=== PATIENT | female | born 1970 | race Caucasian/White ===

== ENCOUNTER 2016-09-26 22:41 | Emergency (ER) | payer OTHER ==
[~2016-09-26] VITALS: Ht 152.4 cm; Wt 65.8 kg
[~2016-09-26 22:41] MED LIST: CYCL10TA2 PO; ESTR0.9T PO; HYDR-2766 PO; INSU100C SQ; INSU100I13 SQ; NAPR500T PO; ONDA4TAB10 SL; TRAM50TA PO; Vancomycin Hcl PO; imitrex; insulin
[2016-09-26 23:36] LABS: BILIRUBIN,URINE NEGATIVE (NEG); GLUCOSE,URINE 100 mg/dL (NEG); NITRITE,URINE NEGATIVE (NEG); PH,URINE 6.5; PROTEIN,URINE NEGATIVE (NEG-TRACE); UROBILINOGEN,URINE 0.2 mg/dL (0.2 mg/dL)
[2016-09-26 23:40] LABS: NEG OBC UR NEG; POS OBC UR POS
[2016-09-26 23:45] LABS: BACTERIA,URINE MODERATE /HPF (0-FEW); RBC,URINE 0 /HPF (0-2); SQUAMOUS EPITHELIAL CELL,UR MANY /LPF
[2016-09-27] VITALS: BP 123/70
--- NOTE | 2016-09-27 00:09 | PHYS DOC ---
Past Medical History Past Medical History: Diabetes-Type I, Migraines, Other Additional Past Medical Histor: interstitial cystitis, chronic abdominal pain, drug seeking behavior Past Surgical History: Appendectomy, Hysterectomy, Oophorectomy, Tonsillectomy , Tubal ligation, Other Additional Past Surgical Histo: left ovary removed Alcohol Use: None Drug Use: None Adult General Chief Complaint Chief Complaint: HYPOGLYCEMIA HPI HPI Patient is a 46 year old female who presents with hypoglycemia. Patient found by her family in her bed & was unresponsive. They could not arouse with sternal rub, accucheck at home was in 20s. EMS gave glucagon & D50, now awake & talking with no complaints. She states she has type 1 diabetes, on lantus & sliding scale short acting insulin. She denies any change in her insulin regimen, she missed dinner because she was sleeping. Otherwise has been eating & drinking normally. Earlier in the day had no complaints, denies fevers/chills , chest pain, shortness of breath, abdominal pain, vomiting, diarrhea, extremity numbness/weakness. 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 Review of Systems Review of Systems Constitutional: Denies fever or chills Eyes: Denies change in visual acuity HENT: Denies nasal congestion or sore throat Respiratory: Denies cough or shortness of breath Cardiovascular: Denies chest pain or edema GI: Denies abdominal pain, nausea, vomiting, or diarrhea : Denies dysuria or hematuria Musculoskeletal: Denies back pain or joint pain Integument: Denies rash or skin lesions Neurologic: Denies headache, focal weakness or sensory changes Endocrine: reports hypoglycemia Allergies Allergies Allergies Coded Allergies Type Severity Reaction Last Updated Verified No Known Drug Allergies 09/23/14 No Physical Exam Physical Exam Constitutional: Well developed, well nourished, no acute distress, non-toxic appearance. HENT: Normocephalic, atraumatic, bilateral external ears normal, oropharynx moist, nose normal. Eyes: PERRLA, EOMI, conjunctiva normal, no discharge. Neck: supple, no stridor. Cardiovascular: RRR, no murmurs, no edema. Lungs & Thorax: LCTAB, no wheezing, no respiratory distress. Abdomen: soft, nontender, nondistended. Skin: Warm, dry, no erythema, no rash. Back: No tenderness. Extremities: No tenderness, no edema. Neurologic: Alert and oriented X 3, normal motor & sensory function, no focal deficits noted. Psychologic: Affect normal, judgement normal, mood normal. Current Patient Data Vital Signs Vital Signs Date Time Temp Pulse Resp B/P (MAP) Pulse Ox O2 Delivery O2 Flow Rate FiO2 09/27/16 00:00 82 18 123/70 (87) 99 Room Air 09/26/16 22:54 97.3 97.3 Lab Values Laboratory Tests Test 09/26/16 22:47 09/26/16 23:20 09/26/16 23:54 Glucose (Fingerstick) 225 mg/dL (70-99) H 284 mg/dL (70-99) H Urine Collection Type Unknown Urine Color Yellow Urine Clarity Clear Urine pH 6.5 Urine Specific [place] 1.010 Urine Protein Negative mg/dL (NEG-TRACE) Urine Glucose (UA) 100 mg/dL (NEG) Urine Ketones (Stick) Negative mg/dL (NEG) Urine Blood Negative (NEG) Urine Nitrite Negative (NEG) Urine Bilirubin Negative (NEG) Urine Urobilinogen Dipstick 0.2 mg/dL (0.2 mg/dL) Urine Leukocyte Esterase Trace (NEG) Urine RBC 0 /HPF (0-2) Urine WBC 1-4 /HPF (0-4) Urine Squamous Epithelial Cells Many /LPF Urine Bacteria Moderate /HPF (0-FEW) Urine Mucus Slight /LPF Urine Test Negative (NEG) EKG EKG Interpreted by me: NSR rate 85, no acute ST/T wave changes, Qtc prolonged 467 ms , no ectopy.[] Radiology/Procedures Radiology/Procedures [] Course & Med Decision Making Course & Med Decision Making Pertinent Labs and Imaging studies reviewed. (See chart for details) The patient presents with hypoglycemia. She has glucose > 200 on arrival. Ordered labs which she refused. She was given food. Glucose stable > 200 with no further complaints. She declines any workup for possible underlying causes of hypoglycemia including infection, ischemia, metabolic. She says she feels better, wants to go home right away, will follow up with head field hockey coach. Recommend check glucose every 2 hours, eat regularly, call head field hockey coach in the AM. There are risks of leaving after minimal observation, could have recurrent hypoglycemia. She lives with family & states they can make sure she is acting appropriately. Instructed to come back for recurrent hypoglycemia, high fever, severe chest pain, focal neuro deficit, uncontrolled vomiting, any otherwise worsening condition. Discharged home in stable condition. [] Dragon Disclaimer Dragon Disclaimer This electronic medical record was generated, in whole or in part, using a voice recognition dictation system. Departure Departure Impression: Primary Impression: Hypoglycemia Disposition: 01 HOME, SELF-CARE Condition: IMPROVED Referrals: NO PCP (PCP) Patient Instructions: Hypoglycemia, [id number] Additional Instructions: You were seen in the emergency department today for low blood glucose. It improved with treatment here. Please be sure to eat regular meals and drink fluids to stay hydrated. Blood glucose every 2 hours throughout the night tonight. Call your head field hockey coach in the morning to be seen this week. Come back for severe confusion, recurring low blood glucose, chest pain, uncontrolled vomiting, any otherwise worsening condition. JORDON MADDEN MD Sep 27, 2016 00:09
--- NOTE | 2016-09-27 06:19 | EKG ---
[facility] [address] [place] [address] Test Date: 2016-09-26 Test Time: 22:50:14 Pat Name: ANGEL MCKEON Department: Room: Gender: F [employer]: : [id number] Requested By: JORDON MADDEN Order Number: [id number] Reading MD: Scott Anguiano Measurements Intervals [place] Rate: 85 P: 48 OK: 130 QRS: 46 QRSD: 72 T: 16 QT: 392 QTc: 467 Interpretive Statements SINUS RHYTHM AXIS NORMAL CONSIDERING AGE LOW VOLTAGE INCOMPLETE RIGHT BUNDLE BRANCH BLOCK PROLONGED QT ABNORMAL ECG RI6.01 Compared to ECG 11/15/2013 13:53:35 Low QRS voltage now present Incomplete right bundle-branch block now present Prolonged QT interval now present Sinus tachycardia no longer present T-wave abnormality no longer present Electronically Signed On 09-27-2016 17:40:37 CDT by Scott Anugiano
== END 2016-09-27 00:22 | disposition home or self-care (01) ==
LOC: ER 22:41
DX: E10.649 Type 1 diabetes mellitus with hypoglycemia without coma (principal); G89.29 Other chronic pain; G43.909 Migraine, unspecified, not intractable, without status migrainosus; Z90.710 Acquired absence of both cervix and uterus; Z90.49 Acquired absence of other specified parts of digestive tract; Z90.721 Acquired absence of ovaries, unilateral; Z98.51 Tubal ligation status; Z79.4 Long term (current) use of insulin
CPT/HCPCS: 80053; 81001; 81025; 82962; 84484; 85027; 87086; 93005; 99285-25

== ENCOUNTER 2019-09-16 19:12 | Observation (INO) | payer OTHER ==
[~2019-09-16] VITALS: Ht 154.9 cm; Wt 68.0 kg
[~2019-09-16 19:12] MED LIST changes: -HYDR-2766 PO; +HYDR-2769 PO; +NAPR-683 PO; -NAPR500T PO
--- NOTE | 2019-09-16 19:20 | PHYS DOC ---
Past Medical History Past Medical History: Diabetes-Type I, Migraines, Other Additional Past Medical Histor: interstitial cystitis, chronic abdominal pain, drug seeking behavior Past Surgical History: Appendectomy, Hysterectomy, Oophorectomy, Tonsillectomy, Tubal ligation, Other Additional Past Surgical Histo: left ovary removed Smoking Status: Current Every Day Smoker Alcohol Use: None Drug Use: None General Adult EDM: Chief Complaint: ALTERED MENTAL STATUS HPI: HPI: Patient is a 49 year old female with a history of diabetes presents with altered mental status. Patient's family member went to check on her and found patient had altered mental status. Patient had blood sugar in the 30s by EMS. Patient was treated prehospital with sugar. Patient blood sugar is now in the 140 range but is still altered. Entire history and physical review of systems is limited due to altered mental status. There is no known last known normal Review of Systems: Review of Systems: Review of systems is unobtainable due to altered mental status. Neuro: Altered mental status Heart Score: Risk Factors: Risk Factors: DM, Current or recent (<one month) smoker, HTN, HLP, family history of CAD, obesity. Risk Scores: Score 0 - 3: 2.5% MACE over next 6 weeks - Discharge Home Score 4 - 6: 20.3% MACE over next 6 weeks - Admit for Clinical Observation Score 7 - 10: 72.7% MACE over next 6 weeks - Early Invasive Strategies Allergies: Allergies: Allergies Coded Allergies Type Severity Reaction Last Updated Verified No Known Drug Allergies 09/23/14 No Physical Exam: PE: Constitutional: Well developed, well nourished, mild distress HENT: Normocephalic, atraumatic, bilateral external ears normal, oropharynx moist, no oral exudates, nose normal. [] Eyes: PERRLA, EOMI, conjunctiva normal, no discharge. [] Neck: Normal range of motion, no tenderness, supple, no stridor. [] Cardiovascular:Heart rate regular rhythm, peripheral pulses intact Lungs & Thorax: No respiratory distress Abdomen: soft, no tenderness, no masses, no pulsatile masses. [] Skin: Warm, dry, no erythema, no rash. [] Back: No tenderness, no CVA tenderness. [] Extremities: No tenderness, no cyanosis, no clubbing, ROM intact, no edema. [] Neurologic: Alert but confused and oriented x0. Moves all extremities. Follows some simple commands. No focal neurological deficits EKG: EKG: [] Normal sinus rhythm with rate 85. Normal axis normal intervals normal ST segments Radiology/Procedures: Radiology/Procedures: [][facility] [address] [place] [address] IMAGING REPORT Signed PATIENT: ANGEL MCKEON ACCOUNT: [id number] : 1970 LOCATION: ER AGE: 49 SEX: F EXAM STATUS: REG ER ORD. PHYSICIAN: YASH TA MD REASON: ams PROCEDURE: CT HEAD WO CONTRAST Exam: CT head INDICATION: Altered mental status TECHNIQUE: Sequential axial images through the head were obtained without the administration of IV contrast. Comparisons: None FINDINGS: No focal parenchymal lesion or hemorrhage is identified. There is no midline shift or sulcal effacement. No acute vascular territory infarction is identified. Rios-white distinction is preserved. The ventricular system is within normal limits without compression hydrocephalus. The basal cisterns are well maintained. The visualized portions of the paranasal sinuses and mastoid air cells are well-pneumatized. No acute fractures. IMPRESSION: No acute intracranial abnormality. Exposure: One or more of the following in the visualized dose reduction techniques were utilized for this examination: 1. Automated exposure control 2. Adjustment of the MA and/or KV according to patient size Use of iterative of reconstructive technique Electronically signed by: Shawna Carbone MD (09/16/2019 7:51 PM) [id number] DICTATED and SIGNED BY: SHAWNA CARBONE MD DATE: 09/16/191950 Impression: [facility] [address] [place], [place] [id number] IMAGING REPORT Signed PATIENT: ANGEL MCKEON ACCOUNT: [id number] : 1970 LOCATION: ER AGE: 49 SEX: F EXAM STATUS: REG ER ORD. PHYSICIAN: YASH TA MD REASON: APHASIA, OMNI 300, 60 ML IV PROCEDURE: CTA HEAD/NECK - CODE STROKE Exam: CTA head and neck INDICATION: Aphagia TECHNIQUE: Sequential axial images through the head and neck obtained following the administration of 60 mL of Omni 300 IV contrast. Sagittal and coronal reformatted images were reconstructed from the axial data and reviewed. 3-D reformatted images were reconstructed from the axial data and reviewed. Comparisons: CT head without contrast same day FINDINGS: CTA NECK: Visualized portions of the thoracic aorta are unremarkable. Standard three-vessel aortic arch anatomy. Right common carotid artery is patent without evidence of stenosis, occlusion or aneurysm. Minimal plaque at the origin of the right internal carotid artery without significant stenosis. Left common carotid artery is patent without evidence of stenosis, occlusion or aneurysm. Minimal plaque at the origin of the left internal carotid artery without significant stenosis. Right vertebral artery is patent to the basilar confluence without evidence of stenosis, occlusion or aneurysm. Left vertebral artery is patent to basilar confluence without evidence of stenosis, occlusion or aneurysm. Visualized soft tissues are unremarkable. CTA HEAD: Intracranial segments of the right internal carotid artery are patent without evidence of stenosis, occlusion or aneurysm. Right MCA is patent. Right EDYTA is patent. Intracranial segments of the left internal carotid artery are patent without evidence of stenosis, occlusion or aneurysm. Left MCA is patent. Left EDYTA is patent. Basilar artery is patent without evidence of stenosis, occlusion or aneurysm. pan devulcanizer helper are patent bilaterally. There is origin of the right CASE MANAGERS. IMPRESSION: 1. No large vessel occlusion. 2. Minimal plaque at the origin of the internal carotid arteries bilaterally without significant stenosis. Exposure: One or more of the following in the visualized dose reduction techniques were utilized for this examination: 1. Automated exposure control 2. Adjustment of the MA and/or KV according to patient size 3. Use of iterative of reconstructive technique Electronically signed by: Shawna Carbone MD (09/16/2019 10:19 PM) [id number] DICTATED and SIGNED BY: SHAWNA CARBONE MD DATE: 09/16/192218 Course & Med Decision Making: Course & Med Decision Making Pertinent Labs and Imaging studies reviewed. (See chart for details) []1929: Mom is the room and says the patient was last seen normal at 130 this morning as she has been staying with her but she did not come out of her room today. Patient was found at the foot of the bed this evening no signs or history of trauma 20:30 pt clinically improved. now oriented to name. following commands more e asily 21:15. PT still quite aphasic 21:30: d/w dr. cross. suggests cta and if no lvo, okay to admit here for mri and cva w/u Discussed with Dr. Kelly who will admit the patient. No TPA was given with last known normal at 1:30 in the morning. Dragon Disclaimer: Dragon Disclaimer: This electronic medical record was generated, in whole or in part, using a voice recognition dictation system. Departure Departure Impression: Primary Impression: Altered mental status Additional Impression: Hypoglycemia Disposition: ADMITTED INPATIENT Admitting Physician: [facility] (DR. KELLY) Condition: STABLE Referrals: NO PCP (PCP) Justicifation of Admission Dx: Justifications for Admission: Justification of Admission Dx: Yes YASH TA MD Sep 16, 2019 19:20
[2019-09-16 19:39] LABS: BASO % 0 % (0-3); EOS % 0 % (0-3); HEMATOCRIT 40.9 % (36.0-47.0); HEMOGLOBIN 14.3 g/dL (12.0-15.5); LYMPH # 0.7 x10^3/uL (1.0-4.8); LYMPH % 9 % (24-48); MEAN CORPUSCULAR HEMOGLOBIN 34 pg (25-35); MEAN CORPUSCULAR HGB CONC 35 g/dL (31-37); MEAN CORPUSCULAR VOLUME 98 fL (79-100); MONO # 0.1 x10^3/uL (0.0-1.1); MONO % 2 % (0-9); NEUT # 7.2 x10^3/uL (1.8-7.7); NEUT % 89 % (31-73); PLATELET COUNT 242 x10^3/uL (140-400); RED BLOOD COUNT 4.17 x10^6/uL (3.50-5.40); RED CELL DISTRIBUTION WIDTH 13.5 % (11.5-14.5); WHITE BLOOD COUNT 8.1 x10^3/uL (4.0-11.0)
[2019-09-16 19:50] LABS: GFR 59.4; POTASSIUM 4.4 mmol/L (3.5-5.1)
--- NOTE | 2019-09-16 19:53 | RAD ---
Exam: CT head INDICATION: Altered mental status TECHNIQUE: Sequential axial images through the head were obtained without the administration of IV contrast. Comparisons: None FINDINGS: No focal parenchymal lesion or hemorrhage is identified. There is no midline shift or sulcal effacement. No acute vascular territory infarction is identified. Rios-white distinction is preserved. The ventricular system is within normal limits without compression hydrocephalus. The basal cisterns are well maintained. The visualized portions of the paranasal sinuses and mastoid air cells are well-pneumatized. No acute fractures. IMPRESSION: No acute intracranial abnormality. Exposure: One or more of the following in the visualized dose reduction techniques were utilized for this examination: 1. Automated exposure control 2. Adjustment of the MA and/or KV according to patient size Use of iterative of reconstructive technique Electronically signed by: Shawna Singh MD (09/16/2019 7:51 PM) [id number]
[2019-09-16 19:58] LABS: ALBUMIN 3.9 g/dL (3.4-5.0); ALBUMIN/GLOBULIN RATIO 1.1 (1.0-1.7); CALCIUM 8.7 mg/dL (8.5-10.1); TOTAL BILIRUBIN 0.8 mg/dL (0.2-1.0); TOTAL PROTEIN 7.3 g/dL (6.4-8.2)
[2019-09-16 20:02] LABS: % LYMPHS 7 % (24-48); % MONOS 3 % (0-10); % SEGS 90 % (35-66); PLT ESTIMATE ADEQUATE (ADEQUATE)
[2019-09-16] MEDS ORDERED: CONTRAST GIVEN. MC PRN (21:45)
[2019-09-16] MEDS ORDERED: ASPIRIN 325 MG TABLET PO ONE (22:00)
[2019-09-16] MEDS ORDERED: IOHEXOL 300 MG/ML 100ML VIAL. IV ONE (22:00)
[2019-09-16] MEDS ORDERED: ONDANSETRON PF 4 MG/2 ML VIAL. IV PRN (22:15)
--- NOTE | 2019-09-16 22:22 | RAD ---
Exam: CTA head and neck INDICATION: Aphagia TECHNIQUE: Sequential axial images through the head and neck obtained following the administration of 60 mL of Omni 300 IV contrast. Sagittal and coronal reformatted images were reconstructed from the axial data and reviewed. 3-D reformatted images were reconstructed from the axial data and reviewed. Comparisons: CT head without contrast same day FINDINGS: CTA NECK: Visualized portions of the thoracic aorta are unremarkable. Standard three-vessel aortic arch anatomy. Right common carotid artery is patent without evidence of stenosis, occlusion or aneurysm. Minimal plaque at the origin of the right internal carotid artery without significant stenosis. Left common carotid artery is patent without evidence of stenosis, occlusion or aneurysm. Minimal plaque at the origin of the left internal carotid artery without significant stenosis. Right vertebral artery is patent to the basilar confluence without evidence of stenosis, occlusion or aneurysm. Left vertebral artery is patent to basilar confluence without evidence of stenosis, occlusion or aneurysm. Visualized soft tissues are unremarkable. CTA HEAD: Intracranial segments of the right internal carotid artery are patent without evidence of stenosis, occlusion or aneurysm. Right MCA is patent. Right EDYTA is patent. Intracranial segments of the left internal carotid artery are patent without evidence of stenosis, occlusion or aneurysm. Left MCA is patent. Left EDYTA is patent. Basilar artery is patent without evidence of stenosis, occlusion or aneurysm. combination presser are patent bilaterally. There is origin of the right HAIR CUTTER. IMPRESSION: 1. No large vessel occlusion. 2. Minimal plaque at the origin of the internal carotid arteries bilaterally without significant stenosis. Exposure: One or more of the following in the visualized dose reduction techniques were utilized for this examination: 1. Automated exposure control 2. Adjustment of the MA and/or KV according to patient size 3. Use of iterative of reconstructive technique Electronically signed by: Shawna Singh MD (09/16/2019 10:19 PM) [id number]
--- NOTE | 2019-09-17 02:58 | NUR ---
PT IS ON ER HOLD BED. UNABLE TO COMPLETE ADMISSION ASSESSMENTS DUE TO PT IS AMS.
[2019-09-17 03:30] VITALS: BP 135/69
[2019-09-17] MEDS ORDERED: NICOTINE 21MG PATCH. TD PRN (06:45)
[2019-09-17 07:50] LABS: BILIRUBIN,URINE NEGATIVE (NEG); CLARITY,URINE CLEAR; COLOR,URINE YELLOW; NITRITE,URINE NEGATIVE (NEG); PROTEIN,URINE NEGATIVE (NEG-TRACE)
[2019-09-17 07:57] LABS: AMPHETAMINE/METHAMPHETAMINE NEG (NEG); BARBITURATES NEG (NEG); BENZODIAZEPINES NEG (NEG); CANNABINOIDS NEG (NEG); COCAINE NEG (NEG); METHADONE NEG (NEG); OPIATES POS (NEG); PHENCYCLIDINE NEG (NEG)
[2019-09-17 08:03] LABS: WBC,URINE OCC /HPF (0-4)
[2019-09-17 08:04] LABS: BACTERIA,URINE FEW /HPF (0-FEW); SQUAMOUS EPITHELIAL CELL,UR MOD /LPF
--- NOTE | 2019-09-17 08:25 | PDOC1 ---
History and Physical Date of Admission Date of Admission DATE: 09/17/19 TIME: 08:15 Identification/Chief Complaint Chief Complaint Altered mental status Source Source: Caregiver History of Present Illness History of Present Illness Ms Silvestre is a 49yo F w/ PMHx Diabetes-Type I, Migraines, chronic interstitial cystitis, chronic abdominal pain, smoker who is brought to ED via EMS for altered mental status. Patient's family member went to check on her and found patient had altered mental status. Mother states patient did not come out of her room today. Patient had blood sugar in the 30s by EMS. Last known normal was 0130 on 09/16/2019. No TPA was given. Glucose into 140s with treatment with dextrose. Patient was not following commands and was aphasic per ED physician. NIHSS was 3. EKG: Normal sinus rhythm with rate 85. Normal axis normal intervals normal ST segments CT head and CTA head and neck negative for thrombus. Admitted for observation in ED with neurology consultation. Seen 08 30 on 09/17/2019 she is alert and oriented x3. No focal neurological deficits. She is anxious to go home. Notes she has been on Novolin and and Novolin R at home has been trying to adjust her insulin dosing because she cannot afford glargine insulin currently. Past Medical History Endocrine: Diabetes Past Surgical History Past Surgical History: Appendectomy, Tubal Ligation, Tonsillectomy, Hysterectomy, Other (Left oophorectomy) Family History Family History: No Significant Social History Smoke: 1 pack per day ALCOHOL: rare Drugs: None Current Problem List Problem List Problems Medical Problems: (1) Altered mental status Status: Acute (2) Hypoglycemia Status: Acute Current Medications Current Medications Current Medications Aspirin (Derek Aspirin) 325 mg 1X ONCE PO Last administered on 09/16/19at 21:33; Start 09/16/19 at 22:00; Stop 09/16/19 at 22:01; Status DC Iohexol (Omnipaque 300 Mg/ml) 60 ml 1X ONCE IV Last administered on 09/16/19at 22:21; Start 09/16/19 at 22:00; Stop 09/16/19 at 22:01; Status DC Info (CONTRAST GIVEN -- Rx MONITORING) 1 each PRN DAILY PRN MC SEE COMMENTS; Start 09/16/19 at 21:45; Stop 09/18/19 at 21:44 Ondansetron HCl (Zofran) 4 mg PRN Q8HRS PRN IV NAUSEA/VOMITING 1ST CHOICE; Start 09/16/19 at 22:15; Stop 09/17/19 at 22:14 Nicotine (Nicoderm Cq 21mg) 1 patch PRN DAILY PRN TD SMOKING CESSATION Last administered on 09/17/19at 07:30; Start 09/17/19 at 06:45 Active Scripts Active Zofran Odt (Ondansetron) 4 Mg Tab.rapdis 1 Tab SL Q6HRS PRN Reported Premarin (Estrogens, Conjugated) 0.9 Mg Tablet 1 Mg PO DAILY Lantus Solostar (Insulin Glargine,Hum.rec.anlog) 100 Unit/1 Ml Insuln.pen 5 Unit SQ DAILY Humalog (Insulin Lispro) 100 Unit/1 Ml Cartridge 0-5 Unit SQ TIDAC Lantus Solostar (Insulin Glargine,Hum.rec.anlog) 100 Unit/1 Ml Insuln.pen 5 Unit SQ QHS Hydrocodone-Apap 10-325 (Hydrocodone Bit/Acetaminophen) 1 Each Tablet 2 Each PO TID Allergies Allergies: Coded Allergies: No Known Drug Allergies (Unverified , 09/23/14) ROS General: No: Chills, Night Sweats, Fatigue, Malaise, Appetite, Other PSYCHOLOGICAL ROS: No: Anxiety, Behavioral Disorder, Concentration difficultie, Decreased libido, Depression, Disorientation, Hallucinations, Hostility, Irritablity, Memory difficulties, Mood Swings, Obsessive thoughts, Physical abuse, Sexual abuse, Sleep disturbances, Suicidal ideation, Other Eyes: No Blurry vision, No Decreased vision, No Double vision, No Dry eyes, No Excessive tearing, No Eye Pain, No Itchy Eyes, No Loss of vision, No Photop hobia, No Scotomata, No Uses contacts, No Uses glasses, No Other HEENT: No: Heacaches, Visual Changes, Hearing change, Nasal congestion, Nasal discharge, Oral lesions, Sinus pain, Sore Throat, Epistaxis, Sneezing, Snoring, Tinnitus, Vertigo, Vocal changes, Other ALLERGY AND IMMUNOLOGY: No: Hives, Insect Bite Sensitivity, Itchy/Watery Eyes, Nasal Congestion, Post Nasal Drip, Seasonal Allergies, Other Hematological and Lymphatic: No: Bleeding Problems, Blood Clots, Blood Transfusions, Brusing, Night Sweats, Pallor, Swollen Lymph Nodes, Other ENDOCRINE: No: Breast Changes, Galactorrhea, Hair Pattern Changes, Hot Flashes, Malaise/lethargy, Mood Swings, Palpitations, Polydipsia/polyuria, Skin Changes, Temperature Intolerance, Unexpected Weight Changes, Other Breast: No New/Changing Breast Lumps, No Nipple changes, No Nipple discharge, No Other Respiratory: No: Cough, Hemoptysis, Orthopnea, Pleuritic Pain, Shortness of breath, SOB with excertion, Sputum Changes, Stridor, Tachypnea, Wheezing, Other Cardiovascular: No Chest Pain, No Palpitations, No Orthopnea, No Paroxysmal Noc. Dyspnea, No Edema, No Lt Headedness, No Other Gastrointestinal: No Nausea, No Vomiting, No Abdominal Pain, No Diarrhea, No Constipation, No Melena, No Hematochezia, No Other Genitourinary: No Dysuria, No Frequency, No Incontinence, No Hematuria, No R etention, No Discharge, No Urgency, No Pain, No Flank Pain, No Other, No , No , No , No , No , No , No Musculoskeletal: No Gait Disturbance, No Joint Pain, No Joint Stiffness, No Joint Swelling, No Muscle Pain, No Muscular Weakness, No Pain In:, No Swelling In:, No Other Neurological: No Behavorial Changes, No Bowel/Bladder ControlChng, No Confusion, No Dizziness, No Gait Disturbance, No Headaches, No Impaired Coord/balance, No Memory Loss, No Numbness/Tingling, No Seizures, No Speech Problems, No Tremors, No Visual Changes, No Weakness, No Other Skin: No Dry Skin, No Eczema, No Hair Changes, No Lumps, No Mole Changes, No Mottling, No Nail Changes, No Pruritus, No Rash, No Skin Lesion Changes, No Other, No Acne Physical Exam General: Alert, Oriented X3, Cooperative, No acute distress HEENT: Atraumatic, PERRLA Lungs: Clear to auscultation, Normal air movement Vitals Vitals Vital Signs Date Time Temp Pulse Resp B/P (MAP) Pulse Ox O2 Delivery O2 Flow Rate FiO2 09/17/19 03:30 99.1 72 16 135/69 (91) 97 Room Air 99.1 Labs Labs Laboratory Tests Test 09/16/19 19:15 09/16/19 19:27 09/16/19 20:32 09/17/19 07:25 Glucose (Fingerstick) 149 mg/dL (70-99) 208 mg/dL (70-99) White Blood Count 8.1 x10^3/uL (4.0-11.0) Red Blood Count 4.17 x10^6/uL (3.50-5.40) Hemoglobin 14.3 g/dL (12.0-15.5) Hematocrit 40.9 % (36.0-47.0) Mean Corpuscular Volume 98 fL (79-100) Mean Corpuscular Hemoglobin 34 pg (25-35) Mean Corpuscular Hemoglobin Concent 35 g/dL (31-37) Red Cell Distribution Width 13.5 % (11.5-14.5) Platelet Count 242 x10^3/uL (140-400) Neutrophils (%) (Auto) 89 % (31-73) Lymphocytes (%) (Auto) 9 % (24-48) Monocytes (%) (Auto) 2 % (0-9) Eosinophils (%) (Auto) 0 % (0-3) Basophils (%) (Auto) 0 % (0-3) Neutrophils # (Auto) 7.2 x10^3/uL (1.8-7.7) Lymphocytes # (Auto) 0.7 x10^3/uL (1.0-4.8) Monocytes # (Auto) 0.1 x10^3/uL (0.0-1.1) Eosinophils # (Auto) 0.0 x10^3/uL (0.0-0.7) Basophils # (Auto) 0.0 x10^3/uL (0.0-0.2) Segmented Neutrophils % 90 % (35-66) Lymphocytes % 7 % (24-48) Monocytes % 3 % (0-10) Platelet Estimate Adequate (ADEQUATE) Sodium Level 134 mmol/L (136-145) Potassium Level 4.4 mmol/L (3.5-5.1) Chloride Level 97 mmol/L (98-107) Carbon Dioxide Level 26 mmol/L (21-32) Anion Gap 11 (6-14) Blood Urea Nitrogen 9 mg/dL (7-20) Creatinine 1.0 mg/dL (0.6-1.0) Estimated GFR (Cockcroft-Gault) 59.4 BUN/Creatinine Ratio 9 (6-20) Glucose Level 247 mg/dL (70-99) Calcium Level 8.7 mg/dL (8.5-10.1) Total Bilirubin 0.8 mg/dL (0.2-1.0) Aspartate Amino Transf (AST/SGOT) 17 U/L (15-37) Alanine Aminotransferase (ALT/SGPT) 22 U/L (14-59) Alkaline Phosphatase 160 U/L (46-116) Creatine Kinase 95 U/L (26-192) Total Protein 7.3 g/dL (6.4-8.2) Albumin 3.9 g/dL (3.4-5.0) Albumin/Globulin Ratio 1.1 (1.0-1.7) Ethyl Alcohol Level < 10 mg/dL (0-10) Urine Collection Type Unknown Urine Color Yellow Urine Clarity Clear Urine pH 7.0 (<5.0-8.0) Urine Specific [place] >=1.030 (1.000-1.030) Urine Protein Negative mg/dL (NEG-TRACE) Urine Glucose (UA) >=1000 mg/dL (NEG) Urine Ketones (Stick) 40 mg/dL (NEG) Urine Blood Negative (NEG) Urine Nitrite Negative (NEG) Urine Bilirubin Negative (NEG) Urine Urobilinogen Dipstick 1.0 mg/dL (0.2 mg/dL) Urine Leukocyte Esterase Negative (NEG) Urine RBC 3-5 /HPF (0-2) Urine WBC Occ /HPF (0-4) Urine Squamous Epithelial Cells Mod /LPF Urine Bacteria Few /HPF (0-FEW) Urine Opiates Screen Pos (NEG) Urine Methadone Screen Neg (NEG) Urine Barbiturates Neg (NEG) Urine Phencyclidine Screen Neg (NEG) Urine Amphetamine/Methamphetamine Neg (NEG) Urine Benzodiazepines Screen Neg (NEG) Urine Cocaine Screen Neg (NEG) Urine Cannabinoids Screen Neg (NEG) Urine Ethyl Alcohol Neg (NEG) Laboratory Tests Test 09/16/19 19:15 09/16/19 19:27 09/16/19 20:32 09/17/19 07:25 Glucose (Fingerstick) 149 mg/dL (70-99) 208 mg/dL (70-99) White Blood Count 8.1 x10^3/uL (4.0-11.0) Red Blood Count 4.17 x10^6/uL (3.50-5.40) Hemoglobin 14.3 g/dL (12.0-15.5) Hematocrit 40.9 % (36.0-47.0) Mean Corpuscular Volume 98 fL (79-100) Mean Corpuscular Hemoglobin 34 pg (25-35) Mean Corpuscular Hemoglobin Concent 35 g/dL (31-37) Red Cell Distribution Width 13.5 % (11.5-14.5) Platelet Count 242 x10^3/uL (140-400) Neutrophils (%) (Auto) 89 % (31-73) Lymphocytes (%) (Auto) 9 % (24-48) Monocytes (%) (Auto) 2 % (0-9) Eosinophils (%) (Auto) 0 % (0-3) Basophils (%) (Auto) 0 % (0-3) Neutrophils # (Auto) 7.2 x10^3/uL (1.8-7.7) Lymphocytes # (Auto) 0.7 x10^3/uL (1.0-4.8) Monocytes # (Auto) 0.1 x10^3/uL (0.0-1.1) Eosinophils # (Auto) 0.0 x10^3/uL (0.0-0.7) Basophils # (Auto) 0.0 x10^3/uL (0.0-0.2) Segmented Neutrophils % 90 % (35-66) Lymphocytes % 7 % (24-48) Monocytes % 3 % (0-10) Platelet Estimate Adequate (ADEQUATE) Sodium Level 134 mmol/L (136-145) Potassium Level 4.4 mmol/L (3.5-5.1) Chloride Level 97 mmol/L (98-107) Carbon Dioxide Level 26 mmol/L (21-32) Anion Gap 11 (6-14) Blood Urea Nitrogen 9 mg/dL (7-20) Creatinine 1.0 mg/dL (0.6-1.0) Estimated GFR (Cockcroft-Gault) 59.4 BUN/Creatinine Ratio 9 (6-20) Glucose Level 247 mg/dL (70-99) Calcium Level 8.7 mg/dL (8.5-10.1) Total Bilirubin 0.8 mg/dL (0.2-1.0) Aspartate Amino Transf (AST/SGOT) 17 U/L (15-37) Alanine Aminotransferase (ALT/SGPT) 22 U/L (14-59) Alkaline Phosphatase 160 U/L (46-116) Creatine Kinase 95 U/L (26-192) Total Protein 7.3 g/dL (6.4-8.2) Albumin 3.9 g/dL (3.4-5.0) Albumin/Globulin Ratio 1.1 (1.0-1.7) Ethyl Alcohol Level < 10 mg/dL (0-10) Urine Collection Type Unknown Urine Color Yellow Urine Clarity Clear Urine pH 7.0 (<5.0-8.0) Urine Specific [place] >=1.030 (1.000-1.030) Urine Protein Negative mg/dL (NEG-TRACE) Urine Glucose (UA) >=1000 mg/dL (NEG) Urine Ketones (Stick) 40 mg/dL (NEG) Urine Blood Negative (NEG) Urine Nitrite Negative (NEG) Urine Bilirubin Negative (NEG) Urine Urobilinogen Dipstick 1.0 mg/dL (0.2 mg/dL) Urine Leukocyte Esterase Negative (NEG) Urine RBC 3-5 /HPF (0-2) Urine WBC Occ /HPF (0-4) Urine Squamous Epithelial Cells Mod /LPF Urine Bacteria Few /HPF (0-FEW) Urine Opiates Screen Pos (NEG) Urine Methadone Screen Neg (NEG) Urine Barbiturates Neg (NEG) Urine Phencyclidine Screen Neg (NEG) Urine Amphetamine/Methamphetamine Neg (NEG) Urine Benzodiazepines Screen Neg (NEG) Urine Cocaine Screen Neg (NEG) Urine Cannabinoids Screen Neg (NEG) Urine Ethyl Alcohol Neg (NEG) Images Images CT head: No focal parenchymal lesion or hemorrhage is identified. There is no midline shift or sulcal effacement. No acute vascular territory infarction is identified. Rios-white distinction is preserved. The ventricular system is within normal limits without compression hydrocephalus. The basal cisterns are well maintained. The visualized portions of the paranasal sinuses and mastoid air cells are well- pneumatized. No acute fractures. IMPRESSION: No acute intracranial abnormality. CTA head and neck CTA NECK: Visualized portions of the thoracic aorta are unremarkable. Standard three- vessel aortic arch anatomy. Right common carotid artery is patent without evidence of stenosis, occlusion or aneurysm. Minimal plaque at the origin of the right internal carotid artery without significant stenosis. Left common carotid artery is patent without evidence of stenosis, occlusion or aneurysm. Minimal plaque at the origin of the left internal carotid artery with out significant stenosis. Right vertebral artery is patent to the basilar confluence without evidence of stenosis, occlusion or aneurysm. Left vertebral artery is patent to basilar confluence without evidence of stenosis, occlusion or aneurysm Visualized soft tissues are unremarkable. CTA HEAD: Intracranial segments of the right internal carotid artery are patent without evidence of stenosis, occlusion or aneurysm. Right MCA is patent. Right EDYTA is patent. Intracranial segments of the left internal carotid artery are patent without evidence of stenosis, occlusion or aneurysm. Left MCA is patent. Left EDYTA is patent. Basilar artery is patent without evidence of stenosis, occlusion or aneurysm. ciaio lumite injector are patent bilaterally. There is origin of the right [employer]ER. IMPRESSION: 1. No large vessel occlusion. 2. Minimal plaque at the origin of the internal carotid arteries bilaterally without significant stenosis. VTE Prophylaxis Ordered VTE Prophylaxis Devices: No VTE Pharmacological Prophylaxi: Yes Assessment/Plan Assessment/Plan A/P: Acute encephalopathy - Likely related to hypoglycemia - resolved. Will discharge home with self care Hypoglycemia -likely related to recently changing Novolin N and Novolin R. Advised on correct dosing regimen Diabetes-Type I -see above migraines -stable chronic interstitial cystitis, chronic abdominal pain -stable smoker -given nicotine patch, counseled on cessation. FEN - General diet PPX - ambulatory, low risk FULL CODE Dispo - discharge home Justicifation of Admission Dx: Justifications for Admission: Justification of Admission Dx: Yes SONYA HINKLE MD Sep 17, 2019 08:25
[2019-09-17] MEDS ORDERED: ONDANSETRON PF 4 MG/2 ML VIAL. IV PRN (08:30)
[2019-09-17] MEDS ORDERED: KETOROLAC 30 MG/ML VIAL. IVP PRN (08:30)
[2019-09-17] MEDS ORDERED: DEXTROSE 50% 25 GM / 50ML DISP.SYRIN. IV PRN (08:30)
[2019-09-17 09:41] VITALS: BP 126/66
--- NOTE | 2019-09-17 10:20 | PDOC3 ---
Discharge Summary Visit Information Date of Admission: Sep 16, 2019 Date of Discharge: Sep 17, 2019 Admitting Diagnosis: Acute encephalopathy Final Diagnosis Problems Medical Problems: (1) Altered mental status Status: Acute (2) Hypoglycemia Status: Acute Brief Hospital Course Allergies Allergies Coded Allergies Type Severity Reaction Last Updated Verified No Known Drug Allergies 09/23/14 No Vital Signs Vital Signs Date Time Temp Pulse Resp B/P (MAP) Pulse Ox O2 Delivery O2 Flow Rate FiO2 09/17/19 09:41 68 16 98 09/17/19 03:30 99.1 135/69 (91) Room Air 99.1 Lab Results Laboratory Tests Test 09/16/19 19:15 09/16/19 19:27 09/16/19 20:32 09/17/19 07:25 Glucose (Fingerstick) 149 mg/dL (70-99) 208 mg/dL (70-99) White Blood Count 8.1 x10^3/uL (4.0-11.0) Red Blood Count 4.17 x10^6/uL (3.50-5.40) Hemoglobin 14.3 g/dL (12.0-15.5) Hematocrit 40.9 % (36.0-47.0) Mean Corpuscular Volume 98 fL (79-100) Mean Corpuscular Hemoglobin 34 pg (25-35) Mean Corpuscular Hemoglobin Concent 35 g/dL (31-37) Red Cell Distribution Width 13.5 % (11.5-14.5) Platelet Count 242 x10^3/uL (140-400) Neutrophils (%) (Auto) 89 % (31-73) Lymphocytes (%) (Auto) 9 % (24-48) Monocytes (%) (Auto) 2 % (0-9) Eosinophils (%) (Auto) 0 % (0-3) Basophils (%) (Auto) 0 % (0-3) Neutrophils # (Auto) 7.2 x10^3/uL (1.8-7.7) Lymphocytes # (Auto) 0.7 x10^3/uL (1.0-4.8) Monocytes # (Auto) 0.1 x10^3/uL (0.0-1.1) Eosinophils # (Auto) 0.0 x10^3/uL (0.0-0.7) Basophils # (Auto) 0.0 x10^3/uL (0.0-0.2) Segmented Neutrophils % 90 % (35-66) Lymphocytes % 7 % (24-48) Monocytes % 3 % (0-10) Platelet Estimate Adequate (ADEQUATE) Sodium Level 134 mmol/L (136-145) Potassium Level 4.4 mmol/L (3.5-5.1) Chloride Level 97 mmol/L (98-107) Carbon Dioxide Level 26 mmol/L (21-32) Anion Gap 11 (6-14) Blood Urea Nitrogen 9 mg/dL (7-20) Creatinine 1.0 mg/dL (0.6-1.0) Estimated GFR (Cockcroft-Gault) 59.4 BUN/Creatinine Ratio 9 (6-20) Glucose Level 247 mg/dL (70-99) Calcium Level 8.7 mg/dL (8.5-10.1) Total Bilirubin 0.8 mg/dL (0.2-1.0) Aspartate Amino Transf (AST/SGOT) 17 U/L (15-37) Alanine Aminotransferase (ALT/SGPT) 22 U/L (14-59) Alkaline Phosphatase 160 U/L (46-116) Creatine Kinase 95 U/L (26-192) Total Protein 7.3 g/dL (6.4-8.2) Albumin 3.9 g/dL (3.4-5.0) Albumin/Globulin Ratio 1.1 (1.0-1.7) Ethyl Alcohol Level < 10 mg/dL (0-10) Urine Collection Type Unknown Urine Color Yellow Urine Clarity Clear Urine pH 7.0 (<5.0-8.0) Urine Specific [place] >=1.030 (1.000-1.030) Urine Protein Negative mg/dL (NEG-TRACE) Urine Glucose (UA) >=1000 mg/dL (NEG) Urine Ketones (Stick) 40 mg/dL (NEG) Urine Blood Negative (NEG) Urine Nitrite Negative (NEG) Urine Bilirubin Negative (NEG) Urine Urobilinogen Dipstick 1.0 mg/dL (0.2 mg/dL) Urine Leukocyte Esterase Negative (NEG) Urine RBC 3-5 /HPF (0-2) Urine WBC Occ /HPF (0-4) Urine Squamous Epithelial Cells Mod /LPF Urine Bacteria Few /HPF (0-FEW) Urine Opiates Screen Pos (NEG) Urine Methadone Screen Neg (NEG) Urine Barbiturates Neg (NEG) Urine Phencyclidine Screen Neg (NEG) Urine Amphetamine/Methamphetamine Neg (NEG) Urine Benzodiazepines Screen Neg (NEG) Urine Cocaine Screen Neg (NEG) Urine Cannabinoids Screen Neg (NEG) Urine Ethyl Alcohol Neg (NEG) Test 09/17/19 09:25 Glucose (Fingerstick) 353 mg/dL (70-99) Laboratory Tests Test 09/16/19 19:15 09/16/19 19:27 09/16/19 20:32 09/17/19 07:25 Glucose (Fingerstick) 149 mg/dL (70-99) 208 mg/dL (70-99) White Blood Count 8.1 x10^3/uL (4.0-11.0) Red Blood Count 4.17 x10^6/uL (3.50-5.40) Hemoglobin 14.3 g/dL (12.0-15.5) Hematocrit 40.9 % (36.0-47.0) Mean Corpuscular Volume 98 fL (79-100) Mean Corpuscular Hemoglobin 34 pg (25-35) Mean Corpuscular Hemoglobin Concent 35 g/dL (31-37) Red Cell Distribution Width 13.5 % (11.5-14.5) Platelet Count 242 x10^3/uL (140-400) Neutrophils (%) (Auto) 89 % (31-73) Lymphocytes (%) (Auto) 9 % (24-48) Monocytes (%) (Auto) 2 % (0-9) Eosinophils (%) (Auto) 0 % (0-3) Basophils (%) (Auto) 0 % (0-3) Neutrophils # (Auto) 7.2 x10^3/uL (1.8-7.7) Lymphocytes # (Auto) 0.7 x10^3/uL (1.0-4.8) Monocytes # (Auto) 0.1 x10^3/uL (0.0-1.1) Eosinophils # (Auto) 0.0 x10^3/uL (0.0-0.7) Basophils # (Auto) 0.0 x10^3/uL (0.0-0.2) Segmented Neutrophils % 90 % (35-66) Lymphocytes % 7 % (24-48) Monocytes % 3 % (0-10) Platelet Estimate Adequate (ADEQUATE) Sodium Level 134 mmol/L (136-145) Potassium Level 4.4 mmol/L (3.5-5.1) Chloride Level 97 mmol/L (98-107) Carbon Dioxide Level 26 mmol/L (21-32) Anion Gap 11 (6-14) Blood Urea Nitrogen 9 mg/dL (7-20) Creatinine 1.0 mg/dL (0.6-1.0) Estimated GFR (Cockcroft-Gault) 59.4 BUN/Creatinine Ratio 9 (6-20) Glucose Level 247 mg/dL (70-99) Calcium Level 8.7 mg/dL (8.5-10.1) Total Bilirubin 0.8 mg/dL (0.2-1.0) Aspartate Amino Transf (AST/SGOT) 17 U/L (15-37) Alanine Aminotransferase (ALT/SGPT) 22 U/L (14-59) Alkaline Phosphatase 160 U/L (46-116) Creatine Kinase 95 U/L (26-192) Total Protein 7.3 g/dL (6.4-8.2) Albumin 3.9 g/dL (3.4-5.0) Albumin/Globulin Ratio 1.1 (1.0-1.7) Ethyl Alcohol Level < 10 mg/dL (0-10) Urine Collection Type Unknown Urine Color Yellow Urine Clarity Clear Urine pH 7.0 (<5.0-8.0) Urine Specific [place] >=1.030 (1.000-1.030) Urine Protein Negative mg/dL (NEG-TRACE) Urine Glucose (UA) >=1000 mg/dL (NEG) Urine Ketones (Stick) 40 mg/dL (NEG) Urine Blood Negative (NEG) Urine Nitrite Negative (NEG) Urine Bilirubin Negative (NEG) Urine Urobilinogen Dipstick 1.0 mg/dL (0.2 mg/dL) Urine Leukocyte Esterase Negative (NEG) Urine RBC 3-5 /HPF (0-2) Urine WBC Occ /HPF (0-4) Urine Squamous Epithelial Cells Mod /LPF Urine Bacteria Few /HPF (0-FEW) Urine Opiates Screen Pos (NEG) Urine Methadone Screen Neg (NEG) Urine Barbiturates Neg (NEG) Urine Phencyclidine Screen Neg (NEG) Urine Amphetamine/Methamphetamine Neg (NEG) Urine Benzodiazepines Screen Neg (NEG) Urine Cocaine Screen Neg (NEG) Urine Cannabinoids Screen Neg (NEG) Urine Ethyl Alcohol Neg (NEG) Test 09/17/19 09:25 Glucose (Fingerstick) 353 mg/dL (70-99) Brief Hospital Course Ms Silvestre is a 49yo F w/ PMHx Diabetes-Type I, Migraines, chronic interstitial cystitis, chronic abdominal pain, smoker who is brought to ED via EMS for altered mental status. Patient's family member went to check on her and found patient had altered mental status. Mother states patient did not come out of her room today. Patient had blood sugar in the 30s by EMS. Last known normal was 0130 on 09/16/2019. No TPA was given. Glucose into 140s with treatment with dextrose. Patient was not following commands and was aphasic per ED physician. NIHSS was 3. EKG: Normal sinus rhythm with rate 85. Normal axis normal intervals normal ST segments CT head and CTA head and neck negative for thrombus. Seen 08 30 on 09/17/2019 she is alert and oriented x3. No focal neurological deficits. She is anxious to go home. Notes she has been on Novolin and and Novolin R at home has been trying to adjust her insulin dosing because she cannot afford glargine insulin currently. Consults: Neurology Problem list: Acute encephalopathy - Likely related to hypoglycemia - resolved. Will discharge home with self care Hypoglycemia -likely related to recently changing Novolin N and Novolin R. Advised on correct dosing regimen Diabetes-Type I -see above migraines -stable chronic interstitial cystitis, chronic abdominal pain -stable smoker -given nicotine patch, counseled on cessation. Dispo - discharge home Greater than 135 minutes spent on same day admit and d/c Discharge Information Condition at Discharge: Improved Follow Up: Weeks (1) Disposition/Orders: D/C to Home Scheduled Estrogens, Conjugated (Premarin) 0.9 Mg Tablet, 1 MG PO DAILY, (Reported) Entered as Reported by: HERBIE BURGOS on 09/18/15 2312 Insulin Glargine,Hum.rec.anlog (Lantus Solostar) 100 Unit/1 Ml Insuln.pen, 5 UNIT SQ QHS, #15 Ref 3 (Reported) Entered as Reported by: GEETA DELGADO on 09/23/14 1155 Last Action: Converted on 09/17/19 0824 by SONYA HINKLE MD Insulin Glargine,Hum.rec.anlog (Lantus Solostar) 100 Unit/1 Ml Insuln.pen, 5 UNIT SQ DAILY, #15 Ref 3 (Reported) Entered as Reported by: HERBIE LORETTA on 09/18/15 2309 Insulin Lispro (Humalog) 100 Unit/1 Ml Cartridge, 0-5 UNIT SQ TIDAC, (Reported) Entered as Reported by: GEETA DELGADO on 09/23/14 1155 Scheduled PRN Ondansetron (Zofran Odt) 4 Mg Tab.rapdis, 1 TAB SL Q6HRS PRN for NAUSEA, #12 Prescribed by: KASSIDY RAMIREZ MD on 02/01/16 1749 Discontinued Medications Hydrocodone Bit/Acetaminophen (Hydrocodone-Apap 10-325 ) 1 Each Tablet, 2 EACH PO TID, (Reported) Entered as Reported by: ARTURO JAYDEN on 06/11/13 0410 Justicifation of Admission Dx: Justifications for Admission: Justification of Admission Dx: Yes SONYA HINKLE MD Sep 17, 2019 10:20
[2019-09-17] MEDS ORDERED: INSULIN LISPRO 300 UNITS/3 ML VIAL. SQ SCH (11:30)
--- NOTE | 2019-09-17 12:09 | PDOC2 ---
NEUROLOGY CONSULT Date of Admission Date of Admission DATE: 09/17/19 TIME: 12:04 Reason for Consult Reason for Consult: Altered mental status Referring Physician Referring Physician: Dr. Brown Source Source: Chart review, Patient History of Present Illness History of Present Illness The patient is a 49-year-old right-handed female with type I diabetes and migraines, who had altered mental status and found to have sugars in the 30s. She has had hypoglycemia before. She's never had a stroke, seizure, or head injury. She feels fine now and wants to go home. She does have a history of migraines but none currently. She thinks she's going to start one if she does not get discharged. Past Medical History CENTRAL NERVOUS SYSTEM: Migraine Renal/: Other ( interstitial cystitis) Endocrine: Diabetes (Type I) Past Surgical History Past Surgical History: Appendectomy, Tubal Ligation, Hysterectomy Family History Family History: Other ( autoimmune disease) Social History Social History , no alcohol, smokes Current Medications Current Medications Current Medications Aspirin (Derek Aspirin) 325 mg 1X ONCE PO Last administered on 09/16/19at 21:33; Start 09/16/19 at 22:00; Stop 09/16/19 at 22:01; Status DC Iohexol (Omnipaque 300 Mg/ml) 60 ml 1X ONCE IV Last administered on 09/16/19at 22:21; Start 09/16/19 at 22:00; Stop 09/16/19 at 22:01; Status DC Info (CONTRAST GIVEN -- Rx MONITORING) 1 each PRN DAILY PRN MC SEE COMMENTS; Start 09/16/19 at 21:45; Stop 09/17/19 at 10:31; Status DC Ondansetron HCl (Zofran) 4 mg PRN Q8HRS PRN IV NAUSEA/VOMITING 1ST CHOICE; Start 09/16/19 at 22:15; Stop 09/17/19 at 08:24; Status DC Nicotine (Nicoderm Cq 21mg) 1 patch PRN DAILY PRN TD SMOKING CESSATION Last administered on 09/17/19at 07:30; Start 09/17/19 at 06:45; Stop 09/17/19 at 10:31; Status DC Ondansetron HCl (Zofran) 4 mg PRN Q4HRS PRN IV NAUSEA/VOMITING 1ST CHOICE; Start 09/17/19 at 08:30; Stop 09/17/19 at 10:31; Status DC Insulin Glargine (Lantus Syringe) 5 unit QHS SQ ; Start 09/17/19 at 21:00; Stop 09/17/19 at 10:31; Status DC Insulin Human Lispro (HumaLOG) 0-7 UNITS TIDACHC SQ ; Start 09/17/19 at 11:30; Stop 09/17/19 at 10:31; Status DC Dextrose (Dextrose 50%-Water Syringe) 12.5 gm PRN Q15MIN PRN IV SEE COMMENTS; Start 09/17/19 at 08:30; Stop 09/17/19 at 10:31; Status DC Ketorolac Tromethamine (Toradol 30mg Vial) 30 mg PRN Q6HRS PRN IVP PAIN; Start 09/17/19 at 08:30; Stop 09/17/19 at 10:31; Status DC Active Scripts Active Zofran Odt (Ondansetron) 4 Mg Tab.rapdis 1 Tab SL Q6HRS PRN Reported Premarin (Estrogens, Conjugated) 0.9 Mg Tablet 1 Mg PO DAILY Lantus Solostar (Insulin Glargine,Hum.rec.anlog) 100 Unit/1 Ml Insuln.pen 5 Unit SQ DAILY Humalog (Insulin Lispro) 100 Unit/1 Ml Cartridge 0-5 Unit SQ TIDAC Lantus Solostar (Insulin Glargine,Hum.rec.anlog) 100 Unit/1 Ml Insuln.pen 5 Unit SQ QHS Allergies Allergies: Coded Allergies: No Known Drug Allergies (Unverified , 09/23/14) ROS Review of System Negative for fever, chills, weight loss, shortness of breath, chest pain, indigestion, hematochezia, melena, and dysuria. Full 14-point review of systems is negative. Physical Exam Physical Examination General: Well-developed, well-nourished white female in no acute distress HEENT: Normocephalic andatraumatic. Temporal arteriespulsatile and nontender.Fundoscopic exam unremarkable Neck: Supple without bruit, no meningismus Musculoskeletal: Stability:see neurologic. Gait exam:see neurologic. Tone:see neurologic.Strength:see neurologic. Neurological: Mental Status:intact, orientation, memory, attention span/concentration, language, fund of knowledge normal. Cranial Nerves:Pupils equal and reactive to light, extraocular movements areintact, visual [place] are full to confrontation. Facial sensation is normal. There is no facial asymmetry. Vestibulo-ocular reflex is intact. Palate elevates and tongue protrudes in midline. All other cranial related problems are negative except as mentioned before.Reflexes:2+ and symmetric with flexor plantar responses. Motor:5/5 strength with normal tone and bulk. Coordination:Finger-nose finger and eshc-ub-voux testing are normal. Rapid alternating movements and fine finger movements are intact. Gait:Normal, including tandem. Sensory:Normal pinprick, vibration, light touch, proprioception. Vitals VITALS Vital Signs Date Time Temp Pulse Resp B/P (MAP) Pulse Ox O2 Delivery O2 Flow Rate FiO2 09/17/19 09:41 68 16 98 09/17/19 03:30 99.1 135/69 (91) Room Air 99.1 Labs Labs Laboratory Tests Test 09/16/19 19:15 09/16/19 19:27 09/16/19 20:32 09/17/19 07:25 Glucose (Fingerstick) 149 mg/dL (70-99) 208 mg/dL (70-99) White Blood Count 8.1 x10^3/uL (4.0-11.0) Red Blood Count 4.17 x10^6/uL (3.50-5.40) Hemoglobin 14.3 g/dL (12.0-15.5) Hematocrit 40.9 % (36.0-47.0) Mean Corpuscular Volume 98 fL (79-100) Mean Corpuscular Hemoglobin 34 pg (25-35) Mean Corpuscular Hemoglobin Concent 35 g/dL (31-37) Red Cell Distribution Width 13.5 % (11.5-14.5) Platelet Count 242 x10^3/uL (140-400) Neutrophils (%) (Auto) 89 % (31-73) Lymphocytes (%) (Auto) 9 % (24-48) Monocytes (%) (Auto) 2 % (0-9) Eosinophils (%) (Auto) 0 % (0-3) Basophils (%) (Auto) 0 % (0-3) Neutrophils # (Auto) 7.2 x10^3/uL (1.8-7.7) Lymphocytes # (Auto) 0.7 x10^3/uL (1.0-4.8) Monocytes # (Auto) 0.1 x10^3/uL (0.0-1.1) Eosinophils # (Auto) 0.0 x10^3/uL (0.0-0.7) Basophils # (Auto) 0.0 x10^3/uL (0.0-0.2) Segmented Neutrophils % 90 % (35-66) Lymphocytes % 7 % (24-48) Monocytes % 3 % (0-10) Platelet Estimate Adequate (ADEQUATE) Sodium Level 134 mmol/L (136-145) Potassium Level 4.4 mmol/L (3.5-5.1) Chloride Level 97 mmol/L (98-107) Carbon Dioxide Level 26 mmol/L (21-32) Anion Gap 11 (6-14) Blood Urea Nitrogen 9 mg/dL (7-20) Creatinine 1.0 mg/dL (0.6-1.0) Estimated GFR (Cockcroft-Gault) 59.4 BUN/Creatinine Ratio 9 (6-20) Glucose Level 247 mg/dL (70-99) Calcium Level 8.7 mg/dL (8.5-10.1) Total Bilirubin 0.8 mg/dL (0.2-1.0) Aspartate Amino Transf (AST/SGOT) 17 U/L (15-37) Alanine Aminotransferase (ALT/SGPT) 22 U/L (14-59) Alkaline Phosphatase 160 U/L (46-116) Creatine Kinase 95 U/L (26-192) Total Protein 7.3 g/dL (6.4-8.2) Albumin 3.9 g/dL (3.4-5.0) Albumin/Globulin Ratio 1.1 (1.0-1.7) Ethyl Alcohol Level < 10 mg/dL (0-10) Urine Collection Type Unknown Urine Color Yellow Urine Clarity Clear Urine pH 7.0 (<5.0-8.0) Urine Specific [place] >=1.030 (1.000-1.030) Urine Protein Negative mg/dL (NEG-TRACE) Urine Glucose (UA) >=1000 mg/dL (NEG) Urine Ketones (Stick) 40 mg/dL (NEG) Urine Blood Negative (NEG) Urine Nitrite Negative (NEG) Urine Bilirubin Negative (NEG) Urine Urobilinogen Dipstick 1.0 mg/dL (0.2 mg/dL) Urine Leukocyte Esterase Negative (NEG) Urine RBC 3-5 /HPF (0-2) Urine WBC Occ /HPF (0-4) Urine Squamous Epithelial Cells Mod /LPF Urine Bacteria Few /HPF (0-FEW) Urine Opiates Screen Pos (NEG) Urine Methadone Screen Neg (NEG) Urine Barbiturates Neg (NEG) Urine Phencyclidine Screen Neg (NEG) Urine Amphetamine/Methamphetamine Neg (NEG) Urine Benzodiazepines Screen Neg (NEG) Urine Cocaine Screen Neg (NEG) Urine Cannabinoids Screen Neg (NEG) Urine Ethyl Alcohol Neg (NEG) Test 09/17/19 09:25 Glucose (Fingerstick) 353 mg/dL (70-99) Laboratory Tests Test 09/16/19 19:15 09/16/19 19:27 09/16/19 20:32 09/17/19 07:25 Glucose (Fingerstick) 149 mg/dL (70-99) 208 mg/dL (70-99) White Blood Count 8.1 x10^3/uL (4.0-11.0) Red Blood Count 4.17 x10^6/uL (3.50-5.40) Hemoglobin 14.3 g/dL (12.0-15.5) Hematocrit 40.9 % (36.0-47.0) Mean Corpuscular Volume 98 fL (79-100) Mean Corpuscular Hemoglobin 34 pg (25-35) Mean Corpuscular Hemoglobin Concent 35 g/dL (31-37) Red Cell Distribution Width 13.5 % (11.5-14.5) Platelet Count 242 x10^3/uL (140-400) Neutrophils (%) (Auto) 89 % (31-73) Lymphocytes (%) (Auto) 9 % (24-48) Monocytes (%) (Auto) 2 % (0-9) Eosinophils (%) (Auto) 0 % (0-3) Basophils (%) (Auto) 0 % (0-3) Neutrophils # (Auto) 7.2 x10^3/uL (1.8-7.7) Lymphocytes # (Auto) 0.7 x10^3/uL (1.0-4.8) Monocytes # (Auto) 0.1 x10^3/uL (0.0-1.1) Eosinophils # (Auto) 0.0 x10^3/uL (0.0-0.7) Basophils # (Auto) 0.0 x10^3/uL (0.0-0.2) Segmented Neutrophils % 90 % (35-66) Lymphocytes % 7 % (24-48) Monocytes % 3 % (0-10) Platelet Estimate Adequate (ADEQUATE) Sodium Level 134 mmol/L (136-145) Potassium Level 4.4 mmol/L (3.5-5.1) Chloride Level 97 mmol/L (98-107) Carbon Dioxide Level 26 mmol/L (21-32) Anion Gap 11 (6-14) Blood Urea Nitrogen 9 mg/dL (7-20) Creatinine 1.0 mg/dL (0.6-1.0) Estimated GFR (Cockcroft-Gault) 59.4 BUN/Creatinine Ratio 9 (6-20) Glucose Level 247 mg/dL (70-99) Calcium Level 8.7 mg/dL (8.5-10.1) Total Bilirubin 0.8 mg/dL (0.2-1.0) Aspartate Amino Transf (AST/SGOT) 17 U/L (15-37) Alanine Aminotransferase (ALT/SGPT) 22 U/L (14-59) Alkaline Phosphatase 160 U/L (46-116) Creatine Kinase 95 U/L (26-192) Total Protein 7.3 g/dL (6.4-8.2) Albumin 3.9 g/dL (3.4-5.0) Albumin/Globulin Ratio 1.1 (1.0-1.7) Ethyl Alcohol Level < 10 mg/dL (0-10) Urine Collection Type Unknown Urine Color Yellow Urine Clarity Clear Urine pH 7.0 (<5.0-8.0) Urine Specific [place] >=1.030 (1.000-1.030) Urine Protein Negative mg/dL (NEG-TRACE) Urine Glucose (UA) >=1000 mg/dL (NEG) Urine Ketones (Stick) 40 mg/dL (NEG) Urine Blood Negative (NEG) Urine Nitrite Negative (NEG) Urine Bilirubin Negative (NEG) Urine Urobilinogen Dipstick 1.0 mg/dL (0.2 mg/dL) Urine Leukocyte Esterase Negative (NEG) Urine RBC 3-5 /HPF (0-2) Urine WBC Occ /HPF (0-4) Urine Squamous Epithelial Cells Mod /LPF Urine Bacteria Few /HPF (0-FEW) Urine Opiates Screen Pos (NEG) Urine Methadone Screen Neg (NEG) Urine Barbiturates Neg (NEG) Urine Phencyclidine Screen Neg (NEG) Urine Amphetamine/Methamphetamine Neg (NEG) Urine Benzodiazepines Screen Neg (NEG) Urine Cocaine Screen Neg (NEG) Urine Cannabinoids Screen Neg (NEG) Urine Ethyl Alcohol Neg (NEG) Test 09/17/19 09:25 Glucose (Fingerstick) 353 mg/dL (70-99) Images Images CT head INDICATION: Altered mental status TECHNIQUE: Sequential axial images through the head were obtained without the administration of IV contrast. Comparisons: None FINDINGS: No focal parenchymal lesion or hemorrhage is identified. There is no midline shift or sulcal effacement. No acute vascular territory infarction is identified. Rios-white distinction is preserved. The ventricular system is within normal limits without compression hydrocephalus. The basal cisterns are well maintained. The visualized portions of the paranasal sinuses and mastoid air cells are well-pneumatized. No acute fractures. IMPRESSION: No acute intracranial abnormality. CTA head and neck INDICATION: Aphagia TECHNIQUE: Sequential axial images through the head and neck obtained following the administration of 60 mL of Omni 300 IV contrast. Sagittal and coronal reformatted images were reconstructed from the axial data and reviewed. 3-D reformatted images were reconstructed from the axial data and reviewed. Comparisons: CT head without contrast same day FINDINGS: CTA NECK: Visualized portions of the thoracic aorta are unremarkable. Standard three-vessel aortic arch anatomy. Right common carotid artery is patent without evidence of stenosis, occlusion or aneurysm. Minimal plaque at the origin of the right internal carotid artery without significant stenosis. Left common carotid artery is patent without evidence of stenosis, occlusion or aneurysm. Minimal plaque at the origin of the left internal carotid artery without significant stenosis. Right vertebral artery is patent to the basilar confluence without evidence of stenosis, occlusion or aneurysm. Left vertebral artery is patent to basilar confluence without evidence of stenosis, occlusion or aneurysm. Visualized soft tissues are unremarkable. CTA HEAD: Intracranial segments of the right internal carotid artery are patent without evidence of stenosis, occlusion or aneurysm. Right MCA is patent. Right EDYTA is patent. Intracranial segments of the left internal carotid artery are patent without evidence of stenosis, occlusion or aneurysm. Left MCA is patent. Left EDYTA is patent. Basilar artery is patent without evidence of stenosis, occlusion or aneurysm. medical office coordinator are patent bilaterally. There is origin of the right RESTAURANT MGR. IMPRESSION: 1. No large vessel occlusion. 2. Minimal plaque at the origin of the internal carotid arteries bilaterally without significant stenosis. Assessment/Plan Assessment/Plan Impression: Hypoglycemic encephalopathy, resolved History of migraine headaches Recommendations: Okay for discharge Follow-up with neurology as needed. Thank you for letting me help with the patient's care. GERRY ARAGON MD Sep 17, 2019 12:09
[2019-09-17] MEDS ORDERED: INSULIN GLARGINE SYRINGE. SQ SCH (21:00)
--- NOTE | 2019-09-18 04:36 | EKG ---
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
== END 2019-09-17 10:00 | disposition home or self-care (01) ==
LOC: ER 19:12 → ED HOLD 22:10
PROVIDERS: ADMIT Family Medicine; ATTEND Family Medicine
DX: R41.82 Altered mental status, unspecified (principal); E10.649 Type 1 diabetes mellitus with hypoglycemia without coma; F17.210 Nicotine dependence, cigarettes, uncomplicated; G43.909 Migraine, unspecified, not intractable, without status migrainosus; N30.10 Interstitial cystitis (chronic) without hematuria; R47.01 Aphasia; R29.703 NIHSS score 3; G93.40 Encephalopathy, unspecified; R13.0 Aphagia; Z90.49 Acquired absence of other specified parts of digestive tract; Z90.710 Acquired absence of both cervix and uterus; Z90.721 Acquired absence of ovaries, unilateral
CPT/HCPCS: 36415; 70450; 70496; 70498; 80053; 80307; 81001; 82550; 82962; 85007; 85025; 93005; 99285; G0378; G0480; Q9967; G0379